=== PATIENT | female | born 1945 | race Caucasian/White ===

== ENCOUNTER 2019-06-26 12:30 | Emergency (ER) | payer MEDICARE, OTHER ==
[~2019-06-26] VITALS: Ht 162.6 cm; Wt 109.2 kg
--- OUTSIDE RECORDS SUMMARY | ~2019-06-26 | XMS | Clinical Summary ---
Demographics + + + | Address | [address] | | | [place] [address] | + + + | Home Phone | | + + + | Preferred Language | Unknown | + + + | Marital Status | | + + + | Judaism Affiliation | 1077 | + + + | Race | Unknown | + + + | Ethnic Group | Unknown | + + + Author + + + | Author | [facility] | | | and [place] | + + + | Organization | [facility] | | | and [place] | + + + | Address | Unknown | + + + | Phone | Unavailable | + + + Support + + + + + | Name | Relationship | Address | Phone | + + + + + | Kenny Li | ECON | [address] | | | | | [place] | | | | | [address] | | + + + + + Care Team Providers + +------+ + | Care Blueprint Maker Name | Role | Phone | + +------+ + | Jose Recinos MD | PCP | | + +------+ + Allergies + + + + + + | Active Allergy | Reactions | Severity | Noted | Comments | | | | | Date | | + + + + + + | Dust Mite Extract | Other (See Comments) | Medium | 12/30/20 | | | | | | 15 | | + + + + + + Medications + + + +---------+------+------+-------+ | Medication | Sig | Dispensed | Refills | Star | End | Statu | | | | | | t | Date | s | | | | | | Date | | | + + + +---------+------+------+-------+ | simvastatin | Take 20 mg by mouth | | 0 | | | Activ | | (ZOCOR) 20 mg tablet | nightly. | | | | | e | + + + +---------+------+------+-------+ | warfarin | Take 2.5 mg by mouth | | 0 | | | Activ | | (COUMADIN) 2.5 mg | Daily. | | | | | e | | tablet | | | | | | | + + + +---------+------+------+-------+ | benazepril | Take 40 mg by mouth | | 0 | | | Activ | | (LOTENSIN) 40 MG | Daily. | | | | | e | | tablet | | | | | | | + + + +---------+------+------+-------+ | levothyroxine | Take 100 mcg by | | 0 | | | Activ | | (SYNTHROID, | mouth every morning | | | | | e | | LEVOTHROID) 100 mcg | (before breakfast). | | | | | | | tablet | | | | | | | + + + +---------+------+------+-------+ | metoprolol | Take 25 mg by mouth | | 0 | | | Activ | | succinate | Daily. | | | | | e | | (TOPROL-XL) 25 mg 24 | | | | | | | | hr tablet | | | | | | | + + + +---------+------+------+-------+ | furosemide (LASIX) | Take 40 mg by mouth | | 0 | | | Activ | | 40 mg tablet | 2 times daily. | | | | | e | + + + +---------+------+------+-------+ | ondansetron | | | 0 | 10/0 | | Activ | | (ZOFRAN) 8 MG tablet | | | | 7/20 | | e | | | | | | 15 | | | + + + +---------+------+------+-------+ | dexamethasone | | | 0 | 10/0 | | Activ | | (DECADRON) 4 mg | | | | 7/20 | | e | | tablet | | | | 15 | | | + + + +---------+------+------+-------+ | LORazepam (ATIVAN) | | | 0 | 10/0 | | Activ | | 1 mg tablet | | | | 7/20 | | e | | | | | | 15 | | | + + + +---------+------+------+-------+ | | | | 0 | 10/0 | | Activ | | oxyCODONE-acetaminop | | | | 6/20 | | e | | hen (PERCOCET) | | | | 15 | | | | 7.5-325 mg per | | | | | | | | tablet | | | | | | | + + + +---------+------+------+-------+ Active Problems + + + | Problem | Noted Date | + + + | Hypothyroid | 08/22/2015 | + + + | Hypertension | 08/22/2015 | + + + | Colon cancer metastasized to intra-abdominal lymph node | 08/09/2015 | + + + + + | Overview: ACTIVE DIAGNOSIS: Stage III colon cancer status | | post hemicolectomy March 28, 2015 | + + Family History + + +------+ + | Medical History | Relation | Name | Comments | + + +------+ + | COPD | Father | | | + + +------+ + | Cancer | Maternal | | colon cancer | | | Grandfath | | | | | er | | | + + +------+ + | Cancer | Mother | | colon cancer | + + +------+ + + +------+ + + | Relation | Name | Status | Comments | + +------+ + + | Father | | | | | | | (Age | | | | | 55) | | + +------+ + + | Father | | | | + +------+ + + | Maternal Grandfather | | | | + +------+ + + | Mother | | | | | | | (Age | | | | | 87) | | + +------+ + + | Mother | | | | + +------+ + + Social History + +-------+ +--------+------+ | Tobacco Use | Types | Packs/Day | Years | Date | | | | | Used | | + +-------+ +--------+------+ | Never Smoker | | | | | + +-------+ +--------+------+ + +---+---+---+ | Smokeless Tobacco: | | | | | Never Used | | | | + +---+---+---+ + + +---------+ + | Alcohol Use | Drinks/We | oz/Week | Comments | | | ek | | | + + +---------+ + | No | | | Alcoholic Drinks/day: rarely | + + +---------+ + + + + | Sex Assigned at | Date Recorded | | | | + + + | Not on file | | + + + + + + + | Job Start Date | Occupation | Industry | + + + + | Not on file | Not on file | Not on file | + + + + + + + + | Travel History | Travel Start | Travel End | + + + + + + | No recent travel history available. | + + Last Filed Vital Signs + + + + | Vital Sign | Reading | Time Taken | + + + + | Blood Pressure | 119/78 | 04/02/20161155 PDT | + + + + | Pulse | 74 | 04/02/20161155 PDT | + + + + | Temperature | 37.5 C (99.5 F) | 03/15/2016811 PDT | + + + + | Respiratory Rate | 16 | 03/15/2016811 PDT | + + + + | Oxygen Saturation | 98% | 08/23/2015829 PST | + + + + | Inhaled Oxygen | - | - | | Concentration | | | + + + + | Weight | 94.4 kg (208 lb 3.2 | 04/02/20161155 PDT | | | oz) | | + + + + | Height | 162.6 cm (5' 4") | 04/02/20161155 PDT | + + + + | Body Mass Index | 35.74 | 04/02/20161155 PDT | + + + + Plan of Treatment + + + + + | Health Maintenance | Due Date | Last Done | Comments | + + + + + | Vaccine: | | | | | Dtap/Tdap/Td (1 - | 2 | | | | Tdap) | | | | + + + + + | Vaccine: Zoster (1 | | | | | of 2) | 3 | | | + + + + + | Breast Cancer | | | | | Screening | 8 | | | + + + + + | Vaccine: | | | | | Pneumococcal 65+ | 8 | | | | Low/Medium Risk (1 | | | | | of 2 - PCV13) | | | | + + + + + | Vaccine: Influenza | | | | | (#1) | 9 | | | + + + + + Results Not on filefrom Last 3 Months Insurance + +--------+ +--------+ +---------+--------+ | Payer | Benefi | Subscriber | Effect | Phone | Address | Type | | | t Plan | ID | ba | | | | | | / | | Dates | | | | | | Group | | | | | | + +--------+ +--------+ +---------+--------+ | MEDICARE | MEDICA | [id number] | | [phone] | | Medica | | | RE | | 008-Pr | 5 | | re | | | PART A | | esent | | | | | | AND B | | | | | | + +--------+ +--------+ +---------+--------+ | [employer] [place] | [place] | [id number] | 08/25/19 | [phone] | | Indemn | | | OF | | 11-Pre | 0 | | ity | | | [place] | | sent | | | | | | MDCR | | | | | | | | SUPPL | | | | | | + +--------+ +--------+ +---------+--------+ + +--------+ +--------+ + + | Guarantor Name | Accoun | Relation to | Date | Phone | Billing Address | | | t Type | Patient | of | | | | | | | | | | + +--------+ +--------+ + + | Mary Li | Person | Self | [birth year] | | [address] | | | [place] | | 1945 | [phone] | [place] [address] | | | darling | | | 1 (Home) | | + +--------+ +--------+ + + Advance Directives Patient has advance care planning documents on file. For more information, please contact:[facility] [place] [address]
--- OUTSIDE RECORDS SUMMARY | ~2019-06-26 | XMS | Clinical Summary ---
Demographics + + + | Address | [address] | | | [place] [address] | + + + | Home Phone | | + + + | Preferred Language | Unknown | + + + | Marital Status | | + + + | Denominational Affiliation | 1077 | + + + | Race | Unknown | + + + | Ethnic Group | Unknown | + + + Author + + + | Author | [facility] [employer] (Historical as of | | | 04-10-19) | + + + | Organization | [facility] (Historical as of | | | 04-10-19) | + + + | Address | Unknown | + + + | Phone | Unavailable | + + + Support + + +---------+ + | Name | Relationship | Address | Phone | + + +---------+ + | Detailed,Message | ECON | Unknown | + | + + +---------+ + | Kenny Cerda | ECON | Unknown | + | + + +---------+ + Care Team Providers + +------+ + | Care Tin Pourer Name | Role | Phone | + +------+ + | Jose Recinos MD | PP | | + +------+ + Allergies + + + + + + | Active Allergy | Reactions | Severity | Noted | Comments | | | | | Date | | + + + + + + | Dust Mite Extract | Itching | Medium | 03/01/20 | | | | | | 13 | | + + + + + + Current Medications + + +-------+---------+------+------+-------+ | Prescription | Sig. | Disp. | Refills | Star | End | Statu | | | | | | t | Date | s | | | | | | Date | | | + + +-------+---------+------+------+-------+ | simvastatin | Take 20 mg by mouth | | | | | Activ | | (ZOCOR) 20 MG tablet | nightly. | | | | | e | + + +-------+---------+------+------+-------+ | metoprolol | Take 25 mg by mouth | | | | | Activ | | (TOPROL-XL) 25 MG 24 | every evening. | | | | | e | | hr tablet | | | | | | | + + +-------+---------+------+------+-------+ | levothyroxine | Take 200 mcg by | | | | | Activ | | (SYNTHROID, | mouth daily. | | | | | e | | LEVOTHROID) 200 MCG | | | | | | | | tablet | | | | | | | + + +-------+---------+------+------+-------+ | benazepril | Take 20 mg by mouth | | | | | Activ | | (LOTENSIN) 20 MG | daily. | | | | | e | | tablet | | | | | | | + + +-------+---------+------+------+-------+ | warfarin | Take 7.5 mg by mouth | | | | | Activ | | (COUMADIN) 7.5 MG | daily. | | | | | e | | tablet | | | | | | | + + +-------+---------+------+------+-------+ | Cholecalciferol | Take 2,000 Units by | | | | | Activ | | (VITAMIN D3) 2000 | mouth daily. | | | | | e | | UNITS TABS | | | | | | | + + +-------+---------+------+------+-------+ | Acetaminophen 500 | Take 500 mg by mouth | | | | | Activ | | MG coapsule | 2 (two) times daily | | | | | e | | | as needed for | | | | | | | | Fever. | | | | | | + + +-------+---------+------+------+-------+ Active Problems + + + | Problem | Noted Date | + + + | Arthropathy of cervical facet joint | 04/02/2016 | + + + + + | Last Assessment & Plan: See discussion under cervical DDD | + + + + + | Cervical spondylosis | 02/15/2016 | + + + + + | Last Assessment & Plan: See discussion under cervical DDD | + + + + + | DDD (degenerative disc disease), cervical | 02/15/2016 | + + + + + | Last Assessment & Plan: Her symptoms started in October 2015. | | She denies any numbness or tingling or weakness. She does have a | | history of colon cancer and had her large intestine removed. As a | | result she has bowel incontinence issues. She had a cervical | | MRI performed at [facility] on December 08, 2015 that | | showed multilevel degenerative disc disease with spondylosis | | resulting in left neural foraminal narrowing. On March 15, 2016 | | she had a C7-T1 cervical epidural steroid injection which | | provided relief of her shoulder pain and biceps pain. She | | continues to have neck pain. She has not tried physical therapy | | for her this neck pain. She is unable to take anti-inflammatory | | as she is on Coumadin. She does take Tylenol as needed for pain | | control.Her residual pain could be due to cervical spondylosis. | | With her residual pain we will send her to physical therapy. If | | she fails to get any significant relief then may consider | | diagnostic median branch blocks and if efficacious radiofrequency | | neurotomies of the median branches of C2, C3, and possibly C4. | | We will get cervical flexion extension x-rays to evaluate for any | | instability. She will then return to the office for farther | | follow-up.Plan, alternatives, risks, and potential benefits of | | the procedure were explained to the patient in great detail. They | | understand there is no guarantee they will get pain relief with | | these procedure. They also understand that if they get pain | | relief with the diagnostic blocks that it will likely last only a | | few hours. They understand that in order to get more prolonged | | pain relief but not permanent pain relief they would have to | | undergo radiofrequency neurotomies. They also understand that | | this procedure is not a long permanent cure for their pain and if | | it worked it would likely give them pain relief for | | approximately 6 to 12 months. They also understand that there are | | risks to the procedure itself which include but are not limited | | to infection, abscess, hematoma, nerve damage, increased pain, | | nerve damage and dysfunction to their legs or arms, and side | | effects or medications. They wish to proceed. | + + + + + | Cervical radicular pain | 02/15/2016 | + + + + + | Last Assessment & Plan: See discussion under cervical | | spondylosis | + + + + + | Shoulder pain, left | 02/15/2016 | + + + + + | Last Assessment & Plan: See discussion under cervical | | spondylosis | + + + + + | Vitamin B 12 deficiency | 02/20/2015 | + + + | Mild cognitive impairment | 02/10/2014 | + + + | Cerebellar mass | 11/16/2012 | + + + | Diplopia | 11/16/2012 | + + + | Right facial numbness | 11/16/2012 | + + + | Cerebellar ataxia (HCC) | 11/16/2012 | + + + | Hypertension | | + + + | Hyperlipidemia | | + + + | Hypothyroid | | + + + Resolved Problems + + + + | Problem | Noted | Resolved | | | Date | Date | + + + + | Vertigo | 11/17/19 | | | | 13 | 3 | + + + + | Nausea with vomiting | 11/17/19 | | | | 13 | 3 | + + + + Family History + + +------+ [...] 85) | | + +------+ + + Social History + +-------+ +--------+------+ | Tobacco Use | Types | Packs/Day | Years | Date | | | | | Used | | + +-------+ +--------+------+ | Never Smoker | | | | | + +-------+ +--------+------+ + + +---------+ + | Alcohol Use | Drinks/We | oz/Week | Comments | | | ek | | | + + +---------+ + | Yes | | | rarely | + + +---------+ + + + + | Sex Assigned at | Date Recorded | | | | + + + | Not on file | | + + + Last Filed Vital Signs + + + + | Vital Sign | Reading | Time Taken | + + + + | Blood Pressure | 119/78 | 04/02/2016 11:50 AM PDT | + + + + | Pulse | 74 | 04/02/2016 11:50 AM PDT | + + + + | Temperature | 37.5 C (99.5 F) | 03/15/2016 8:09 AM PDT | + + + + | Respiratory Rate | 16 | 03/15/2016 8:09 AM PDT | + + + + | Oxygen Saturation | 97% | 03/15/2016 8:09 AM PDT | + + + + | Inhaled Oxygen | - | - | | Concentration | | | + + + + | Weight | 94.4 kg (208 lb 3.2 | 04/02/2016 11:50 AM PDT | | | oz) | | + + + + | Height | 162.6 cm (5' 4") | 04/02/2016 11:50 AM PDT | + + + + | Body Mass Index | 35.74 | 04/02/2016 11:50 AM PDT | + + + + Plan [...] | + + + + + | DEXA SCAN SCREENING | | | | | | 8 | | | + + [...] filefrom Last 3 Months Insurance + +--------+ +------+-------+ + | Payer | Benefi | Subscriber | Type | Phone | Address | | | t Plan | ID | | | | | | / | | | | | | | Group | | | | | + +--------+ +------+-------+ + | MEDICARE | MEDICA | [id number] | | | [address] | | | RE | | | | [place] [phone] | | | IP-OP | | | | | + +--------+ +------+-------+ + | [employer] [place] | MUTUAL | [id number] | | | | | | [place] | | | | | | | [place] | | | | | + +--------+ +------+-------+ + + +--------+ +--------+ + + | Guarantor Name | Accoun | Relation to | Date | Phone | Billing Address | | | t Type | Patient | of | | | | | | | | | | + +--------+ +--------+ + + | MARY CERDA | Person | Self [birth year] | Home: | [address] | | | [place] | | 1945 | [phone] [place] | | | darling | | | [phone] | + +--------+ +--------+ + +
--- OUTSIDE RECORDS SUMMARY | ~2019-06-26 | XMS | Clinical Summary ---
Demographics + + + | Address | [address] | | | [place] [address] | + + + | Home Phone | | + + + | Preferred Language | Unknown | + + + | Marital Status | | + + + | Mormonism Affiliation | 1077 | + + + | Race | Unknown | + + + | Ethnic Group | Unknown | + + + Author + + + | Author | [facility] | | | and [place] | + + + | Organization | [facility] | | | and [place] | + + + | Address | Unknown | + + + | Phone | Unavailable | + + + Support + + + + + | Name | Relationship | Address | Phone | + + + + + | Kenny Li | ECON | [address] | | | | | [place] | | | | | [address] | | + + + + + Care Team Providers + +------+ + | Care Special Education Professional Name | Role | Phone | + [...] +--------+ +---------+--------+ | MEDICARE | MEDICA | [id number] | | [phone] | | Medica | | | RE | | 008-Pr | 5 | | re | | | PART A | | esent | | | | | | AND B | | | | | | + +--------+ +--------+ +---------+--------+ | [employer] [place] | [place] | [id number] | 08/25/19 | [phone] | | Indemn | | | OF | | 11-Pre | 0 | | ity | | | [place] | | sent | | | | [...] Person | Self | [birth year] | | [address] | | | al/[place] | | 1945 | [phone] | [place] [address] | | | darling | | | 1 (Home) | | + +--------+ +--------+ + + Advance Directives Patient has advance care planning documents on file. For more information, please contact:[facility] [place] [address]
--- OUTSIDE RECORDS SUMMARY | ~2019-06-26 | XMS | Clinical Summary ---
Demographics + + + | Address | [address] | | | [place] [address] | + + + | Home Phone | | + + + | Preferred Language | Unknown | + + + | Marital Status | | + + + | Bahai Affiliation | 1077 | + + + | Race | Unknown | + + + | Ethnic Group | Unknown | + + + Author + + + | Author | [facility] [employer] [facility] (Historical as of | | | 04-10-19) | + + + | Organization | [facility] (Historical as of | | | 04-10-19) [...] Team Providers + +------+ + | Care In Home Baby Sitter Name | Role | Phone | + [...] a cervical | | MRI performed at [facility] on December 08, 2015 that | [...] +------+-------+ + | MEDICARE | MEDICA | [id number] | | | [address] | | | RE | | | | [place] [address] | | | IP-OP | | | | | + +--------+ +------+-------+ + | [employer] [place] | MUTUAL | [id number] | | | | | | [place] | | | | | | | [place] | | | | | + +--------+ [...] | Self | [birth year] | Home: | [address] | | | [place] | | 1945 | [phone] | [place] | | | darling | | | [phone] | [phone] | + +--------+ +--------+ + +
[~2019-06-26 12:30] MED LIST: BENAZEPRIL HCL20 MG PO; BENAZEPRIL HCL40 MG PO; CEFTRIAXONE2 GM IV; COUMADIN5 MG PO; DSS100 MG PO; FLAGYL500 MG PO; FUROSEMIDE40 MG PO; HEPARIN SO5000 UNIT1 SUB-Q; HEPARIN SO5000 UNIT3 INJ; LEVOTHYROXINE100 MCG PO; LEVOTHYROXINE200 MCG PO; LISINOPRIL5 MG PO; LOVENOX100 MG SUB-Q; LOVENOX30 MG; OXYCODON-ACETA1 EAC2 PO; PERCOCET 7.5-31 EACH PO; SENNA8.6 M1 PO; TEGRETOL XR200 MG PO; TOPROL XL25 MG PO; TYLENOL 8 HOUR650 MG PO; VITAMIN D2000 UNI1 PO; VITAMIN D5000 UNIT PO; WARFARIN SODIUM5 MG PO; ZOCOR20 MG PO; ZOFRAN8 MG PO
[2019-06-26] MEDS ORDERED: SIMVASTATIN20 MG PO (12:53)
[2019-06-26] MEDS ORDERED: BENAZEPRIL HCL40 MG PO (12:53)
[2019-06-26] MEDS ORDERED: POTASSIUM CHLO10 MEQ PO (12:54)
[2019-06-26] MEDS ORDERED: NORCO 5-325 TA1 EACH PO (15:01)
== END 2019-06-26 15:20 | disposition home or self-care (01) ==
LOC: ED 12:30
DX: M25.511 Pain in right shoulder (principal); I10 Essential (primary) hypertension; Z79.899 Other long term (current) drug therapy; Z79.01 Long term (current) use of anticoagulants; Z85.038 Personal history of other malignant neoplasm of large intestine
CPT/HCPCS: 73030; 99283-25

== ENCOUNTER 2020-06-30 07:15 | Day surgery (SDC) | payer MEDICARE, OTHER ==
[~2020-06-30] VITALS: Ht 165.1 cm; Wt 104.5 kg
--- NOTE | ~2020-06-30 | OR ---
[facility] [address], [place] [address] Draft DATE OF OPERATION: 06/30/2020 SURGEON: Filipe Rivera MD PREOPERATIVE DIAGNOSIS: History of colon resection x2 for colon cancer and recurrent colon cancer; bowel problems of diarrhea alternating with constipation. POSTOPERATIVE DIAGNOSIS: Normal-appearing ileum and remaining sigmoid and rectum. PROCEDURE: Colonoscopy with intubation of ileum, biopsies of ileum and remaining rectum and left colon. ANESTHESIA: Intravenous sedation, fentanyl 100 mcg and Versed 3 mg. INDICATION: This 75-year-old white woman has undergone colon resection twice for colon cancer 1st by me in 1994, incidentally noted during the time of hysterectomy and later a few years ago. She has additionally undergone cholecystectomy, appendectomy, hysterectomy, has suffered a cerebellar abscess in 2012, has had a saddle embolism chronically anticoagulated with Coumadin and has other medical problems. She has had issues of diarrhea alternated with constipation and perianal excoriation. She is admitted at this time for colonoscopy to assess cause of her symptoms and to assess for possible recurrent neoplasm. The risks of bleeding, infection, and perforation were reviewed with her. Given her overall situation, we have elected to not reverse her anticoagulation and she is fully anticoagulated with Coumadin at this time. FINDINGS: The prep was good. The remaining colon including the sigmoid and rectum with ileoproctostomy. Intubation well into the ileum was accomplished. There was no sign of inflammatory bowel disease or anything of that sort. The colon or rectum itself appeared normal also. She was noted to have some excoriation of the skin, perianal area and low-grade anal stenosis for reasons that are unclear. DESCRIPTION OF PROCEDURE: The patient was brought to the endoscopy suite and placed in lateral decubitus position, given intravenous sedation to the point of slurred speech and nystagmus with full PATIENT NAME: FABIAN CERDA OPERATIVE REPORT DATE OF : 41 REPORT #: [id number] PHYSICIAN: FILIPE RIVERA MD PCP: LISET RECINOS MD REPORT IS CONFIDENTIAL AND NOT TO BE RELEASED WITHOUT AUTHORIZATION [facility] [address], [place] [address] Draft cardiopulmonary monitoring. Examination of the perineum showed inflammatory changes of the skin consistent with chronic excoriation. Digital examination showed mild anal stenosis. The scope was passed into the rectum and manipulated through the sigmoid and the remnant of left colon to the ileum, the ileum was easily traversed many cm. Biopsies were taken there to assess for occult inflammatory bowel disease. The scope was withdrawn and the anastomosis identified and nonstenotic and noninflamed and without sign of neoplasm. Biopsies were taken of the remnant of the colon including the rectum. The scope was removed and the patient was taken to the recovery room in good condition. CONCLUDING DIAGNOSIS: No sign of pathologic inflammation or underlying neoplasm or recurrent polyp. PLAN: Various regimens have been outlined for her to use to improve her symptoms, none of which she takes. One thing that may be helpful to her might be Calmoseptine as a perianal ointment. This will at least diminish her excoriation. She will return to the ongoing care of Dr. Recinos. She will further consider remedies we have outlined for her diarrhea problem which might include most dominantly loperamide. Filipe Rivera MD JM/MODL /[id number] cc: Dr. Jorje Gandhi MD Copies: GAYLE GANDHI MD ~ PATIENT NAME: FABIAN CERDA OPERATIVE REPORT DATE OF : 41 REPORT #: [id number] PHYSICIAN: FILIPE RIVERA MD PCP: LISET RECINOS MD REPORT IS CONFIDENTIAL AND NOT TO BE RELEASED WITHOUT AUTHORIZATION
[~2020-06-30 07:15] MED LIST changes: +ACETAMINOPHEN-C1 TAB PO; +BACTRIM DS TAB1 EACH PO; +GABAPENTIN100 MG PO; +NORCO 5-325 TA1 EACH PO; +POTASSIUM CHLO10 MEQ PO; +QUESTRAN PACKET4 GM PO; +SIMVASTATIN20 MG PO
--- NOTE | 2020-06-30 09:16 | NUR ---
06/30/20 0916 [place],Carmen 0906 PT ARRIVED TO PACU ON 2L VIA NC, PT WAKES EASILY AND DENIES PAIN AND NAUSEA. VSS. PT ENCOUAGED TO PASS GAS.
--- NOTE | 2020-06-30 10:45 | NUR ---
PT ALERT, ORIENTED AND SUPPORTED BY HER KENDALL. BOTH PLEASANT, VERY FAMMILIAR WITH SAH-NUMEROUS PROCEDURES AND PROCEDURES HERE. PT REQUESTED PRAYER, WILL FOLLOW
--- NOTE | 2020-07-03 11:58 | PATH ---
[facility] [address] [facility] [place], [place] [address] Signed SPECIMEN(S): A ILEUM SPECIMEN(S): B COLON REMNANT SPECIMEN(S): C RECTUM SPECIMEN SOURCE: A. ILEUM B. COLON REMNANT C. RECTUM CLINICAL HISTORY: Preop: Screening colonoscopy. Postop: Normal. MICROSCOPIC DESCRIPTION: Histologic sections of all submitted blocks are examined by light microscopy. These findings, together with the gross examination, support the pathologic diagnosis. FINAL PATHOLOGIC DIAGNOSIS: A. Ileum, biopsy: - Ileal mucosa with no histopathologic abnormality. - Negative for acute inflammation or granulomata. - Negative for dysplasia or malignancy. B. Colon remnant, biopsy: - Colonic mucosa with hyperplastic mucosal changes. - Negative for dysplasia or malignancy. C. Rectum, biopsy: - Polypoid fragments of colorectal mucosa with features compatible with hyperplastic polyp(s). - Negative for dysplasia or malignancy. COMMENT: The history of colonic adenocarcinoma status post resection in 2014 is noted. NAL:cml:C2NR GROSS DESCRIPTION: Three specimens are received in three containers, labeled "SK." A. The specimen, labeled "SK," and designated on the requisition "ileum biopsy," is received in formalin and consists of one fragment pink-waddell tissue (0.4 x 0.2 x 0.2 cm). The specimen is submitted entirely in cassette (A1). B. The specimen, labeled "SK," and designated on the requisition "colon remnant biopsy," is received in formalin and consists of one fragment of PATIENT NAME: FABIAN CERDA PATHOLOGY DATE OF : 41 REPORT #: [id number] PHYSICIAN: LAURIE BATISTA PCP: LISET SILVER MD REPORT IS CONFIDENTIAL AND NOT TO BE RELEASED WITHOUT AUTHORIZATION [facility] [address] [place], [place] [address] Signed pink-waddell tissue (0.4 x 0.3 x 0.3 cm). The specimen is submitted entirely in cassette (B1). C. The specimen, labeled "SK," and designated on the requisition "rectum biopsy," is received in formalin and consists of one piece of white-waddell tissue (0.4 x 0.3 x 0.3 cm). The specimen is submitted entirely in cassette (C1). AC (under the direct supervision of a pathologist) The Gross Description was prepared using a voice recognition system. The report was reviewed for accuracy; however, sound-alike word errors, addition and/or deletions may occur. If there is any question about this report, please contact Client Services. PERFORMING LABORATORY: The technical component was performed by [facility], [address] [place] [id number] ([facility]: Desiree Batista MD; CLIA# [id number]). [facility], [address] [address] (CLIA# [id number]). Diagnostician: Pily Roberson MD Pathologist Electronically Signed 07/03/2020 Copies: ~ PATIENT NAME: FABIAN CERDA PATHOLOGY DATE OF : 41 REPORT #: [id number] PHYSICIAN: LAURIE BATISTA PCP: LISET SILVER MD REPORT IS CONFIDENTIAL AND NOT TO BE RELEASED WITHOUT AUTHORIZATION
== END 2020-06-30 09:56 | disposition home or self-care (01) ==
LOC: DS 07:15 → OPS 07:15 → DS 07:45 → OPS 08:30
PROVIDERS: ATTEND Surgery
PROC: 0DBB8ZX Excision of Ileum, Via Natural or Artificial Opening Endoscopic, Diagnostic (ICD-10-PCS; principal; 2020-06-30 08:30)
PROC: 0DBP8ZX Excision of Rectum, Via Natural or Artificial Opening Endoscopic, Diagnostic (ICD-10-PCS; principal; 2020-06-30 08:30)
PROC: 0DBE8ZX Excision of Large Intestine, Via Natural or Artificial Opening Endoscopic, Diagnostic (ICD-10-PCS; principal; 2020-06-30 08:30)
DX: K62.1 Rectal polyp (principal); K63.89 Other specified diseases of intestine; S30.817A Abrasion of anus, initial encounter; K62.4 Stenosis of anus and rectum; E78.5 Hyperlipidemia, unspecified; I10 Essential (primary) hypertension; E03.9 Hypothyroidism, unspecified; E66.9 Obesity, unspecified; I87.8 Other specified disorders of veins; X58.XXXA Exposure to other specified factors, initial encounter; Z79.890 Hormone replacement therapy; Z79.899 Other long term (current) drug therapy; Z79.52 Long term (current) use of systemic steroids; Z79.01 Long term (current) use of anticoagulants; Z85.038 Personal history of other malignant neoplasm of large intestine; Z80.0 Family history of malignant neoplasm of digestive organs; Z90.49 Acquired absence of other specified parts of digestive tract; Z86.711 Personal history of pulmonary embolism; Z98.890 Other specified postprocedural states; Z93.2 Ileostomy status; Z98.0 Intestinal bypass and anastomosis status; Z68.38 Body mass index [BMI] 38.0-38.9, adult
CPT/HCPCS: 99153; G0500; J2250; J3010; J7121